=== PATIENT | male | born 1955 | race Caucasian/White ===

== ENCOUNTER 2018-08-11 20:00 | Emergency (ER) | payer SELFPAY ==
[2018-08-11 20:01] VITALS: PULSE 52; RESP 14; TEMP 37; O2SAT 97; BMI 25.8
--- NOTE | 2018-08-11 20:24 | ED.VISSUMM ---
- ER Visit Summary Date of Service: 08/11/18 Chief Complaint: Left hand laceration History of Present Illness: The patient is a 62 M left hand in a saw prior to arrival. No other injury. T, Physical Examination: here is a 12 cm laceration dorsum of the hand. The extensor tendons of the left hand are severed, patient is unable to extend the thumb. There is partial tendon tear of the second digit also. Patient has distal capillary refill. Emergency Department Course and Treatment: Patient received tetanus, Ancef, analgesia. I discussed the patient with Regan durant he will be transferred there for Ortho hand care. He was told he will need surgery. Transfer in guarded condition Impression: Hand laceration 12 cm Extensor tendon laceration This note was generated with [employer] dictation software. It may contain incorrect words, spelling, and punctuation that were not noted in review of the chart prior to signing ED Disposition - Plan for ED Patient: Referrals: Rebekah De Santiago DO [Primary Care Provider] -
--- NOTE | 2018-08-11 20:27 | ED.DCSUM_ITS ---
- ER Visit Summary Date of Service: 08/11/18 Chief Complaint: Left hand laceration History of Present Illness: The patient is a 62 M left hand in a saw prior to arrival. No other injury. T, Physical Examination: here is a 12 cm laceration dorsum of the hand. The extensor tendons of the left hand are severed, patient is unable to extend the thumb. There is partial tendon tear of the second digit also. Patient has distal capillary refill. Emergency Department Course and Treatment: Patient received tetanus, Ancef, analgesia. I discussed the patient with Regan durant he will be transferred there for Ortho hand care. He was told he will need surgery. Transfer in guarded condition Impression: Hand laceration 12 cm Extensor tendon laceration This note was generated with [employer] dictation software. It may contain incorrect words, spelling, and punctuation that were not noted in review of the chart prior to signing ED Disposition - Plan for ED Patient: Referrals: Rebekah De Santiago DO [Primary Care Provider] -
--- NOTE | 2018-08-11 20:30 | RAD_ITS ---
STUDY: X-RAY - LEFT HAND REASON FOR EXAM: Male, 62 years old. Laceration from saw. TECHNIQUE: 3 view(s) of the hand. COMPARISON: None. FINDINGS: Normal radiocarpal articulation. Normal distal radioulnar joint. Normal visualized carpal bones. Normal carpal articulations Normal carpometacarpal articulation of the thumb. Normal second through fifth carpometacarpal joints. Normal metacarpi. Normal metacarpophalangeal joint of the thumb. Normal interphalangeal joint of the thumb. Normal proximal and distal phalanges of the thumb. Normal metacarpophalangeal joints of the second through fifth fingers. Normal proximal and distal interphalangeal joints of the second through fifth fingers. Normal phalanges of the second through fifth fingers. Appears to be soft tissue irregularity over the palm of hand. There is no foreign body. RAD/Hand Min 3 Views IMPRESSION: 1. No evidence of foreign body. 2. No fracture or dislocation. Electronically Signed: Wilbur Couch DO at 20:47 EDT Tel [phone], Service support ,
[2018-08-11] MEDS: Diphth,Pertuss(Acell),Tet Vac 0.5 ML Vial IM (20:42)
[2018-08-11] MEDS: Cefazolin 1 GM/50 ML BAG IV (20:42)
[2018-08-11] MEDS: Morphine 4 MG/ML Syringe IV (20:43)
[2018-08-11] MEDS: Ondansetron 4 MG/2 ML Vial IV (20:43)
[2018-08-11 20:55] VITALS: BP 143/81; PULSE 57; RESP 16; O2SAT 96
== END 2018-08-11 21:34 | disposition short-term general hospital (02) ==
LOC: ED 20:20
PROVIDERS: Emergency Provider Emergency Medicine; Family Provider Internal Medicine; PCP Internal Medicine
DX: S66.329A Laceration of extensor muscle, fascia and tendon of unspecified finger at wrist and hand level, initial encounter (principal); S66.321A Laceration of extensor muscle, fascia and tendon of left index finger at wrist and hand level, initial encounter; S61.412A Laceration without foreign body of left hand, initial encounter; W27.0XXA Contact with workbench tool, initial encounter; Y93.9 Activity, unspecified; Y92.9 Unspecified place or not applicable
CPT/HCPCS: 73130; 90715; 96365; 96375; 99284; J7030; A4216; J2405

== ENCOUNTER 2018-10-22 08:00 | Outpatient (RCR) | payer SELFPAY ==
--- NOTE | 2018-09-30 15:31 | HP.OTEVAL_ITS ---
Patient's Visit Information BACILIO CASLILAS is a 63 year old M, referred to Occupational Therapy by Justin Min, with a diagnosis of left hand truma. Date of Evaluation: 09/24/18 Occupational Therapist: Hollie Mead, HOMERO/Brenda, CHT - Subjective Subjective: This injury on 08/11/18, sx 08/20/18. pt arrives with out-cork wirer extension orthosis states he recived this on 08/21/18. pt was moving thumb following sx and now notices numbness on the tip of his thumb. Pt is ready to start moving his hand to return to his PLOF. pt currently states he has no grasp ability of his left hand. Dr. mireles states pt is S/P EIP to EPL tendon transfer. Pt arrived with operative report. - ADLs Dressing: Button shirt, Pants, Socks, Shoes Fasteners: Tie shoes, Buttons, Zippers, [place], Belt Eating: Use silverware Bathing: Handle washcloth & soap Miscellaneous: Handle money (change), Hold change, Write, Turn pages in book, Function in drive through window - Pain left hand 0 Pain Intensity Range: 0, 3 - ROM Forearm: WNL Wrist: right 50/30 left 30/20 CMC: right 25 left +10 MP: right 55 left 20 IP: right 55 left 15 ROM Comments: left IF MCP 25 PIP 45 DIP 40. left MF MCP 30 PIP 65 DIP 45. left RF MCP 40 PiP 65 DIP 50. left LF MCP 35 PIP 65 DIP 45. pt demo with limited functional grasp - Strength Supreme Court Justice: right 30# left unable Lateral Pinch: right 22# left NT Tripod Pinch: right 12# left NT Strength Comments: will test left aircraft mechanic structures/pinch strength at later date - Edema PIP: right MF 6.8cm left 7.5cm Proximal Phalanx: right 21cm left 22.5cm - Sensation Thumb: right 2.83 left 3.18 Index: right 2.83 left 3.18 Middle: right 2.83 left 2.83 Ring: right 2.83 left 2.83 Little: right 2.83 left 2.83 - Quick DASH-Disab of Arm,Shoulder& Hand Quick DASH Score: 78.3325 - Goals Goal:100% adherence to protocol: Yes Comment: EIP to EPL tendon transfer Goal:Daily scar massage when approriate: Yes Goal:ROM equal to unaffected hand: Yes Goal:Supreme Court Justice/Pinch strength at least 75% of unaffected hand: Yes Goal:No pain with affected hand use: Yes Goal:Full use of affected hand in daily activities including: Yes Goal:Improvement in sensation documented by [place]-Jorge: Yes - Rehabilitation General Assessment: Pt s/p 08/20/18 EIP to EPL tendon transfer, Left IF radial collateral ligament and ulnar collateral ligament metacarpophalangeal joint, Left IF dorsal capsule repair metacarpophalogeal joint, Left radial and ulnar sagittal band repairs, IF metacarppphalangeal joint, removalof foreign body, left IF dorsal aspect. Repair of extensor digitorum communis, left IF, s uperficial radial nerve repair, let hand. Left extensor indicis proprius to extensor pollicis longus transfer, irrigation and debridement of bone, left Metacarpophalangeal joint of thumb., dorsal capsule repair, left thumb metacarpophalangeal joint thumb. Today pt arrives with left out-cork wirer orthosis, edema and min. AROM. pt currently limited with ADLs and IADLs due to healing of tendon tsf, and a number of repairs. pt would benefit from skilled OT services 1-2 x week for 8 weeks. Today pt was ed. on EIP to EPL tendon transfer and protocol, AROM and AAROM ex. pt was given handout and demo understanding of ex and agree to POC. Due to pt paying out of pocket for therapy he will be seen 1- 2x week for 5 weeks. Rehabilitation Potential: Good - Anticipated Interventions Anticipated Interventions: A/AAROM/PROM, Strengthening, Edema Control, Scar Care, Triggerpoint Release, Sensory Retraining, Wound Care, Modalities, Orthoses, Joint Protection/Energy Conservation, Ergonomic Education, Fine Motor Coord/Juve - Visit Plan Frequency: 1-2x /Week Duration: 6 Weeks TEXT: Thank you for the opportunity to evaluate your patient. For Medicare and Medicare HMO plans, please review the plan of care and approve it. It will need to be FAXED BACK to us at [phone] for Medicare purposes. Please let me know if there are questions or concerns regarding this plan of care. Physician Signature: Date:
--- NOTE | 2018-10-15 09:54 | OTREVAL_ITS ---
Justin Min, It has been my pleasure to treat BACILIO CASILLAS over the last 4 visits for left hand truma. Please see the progress note below for an update on the occupational therapy plan of care! Subjective: pt arrives states he is feeling good- using edema glove during the day- Objective/Function: IF MCP 65 PIP 75 DIP 65. MF MCP 75 PIP 95 DIP 70. RF MCP 80 PIP 95 DIP 70. LF MCP 80 PIP 85 DIP 65. left thum MP45 IP 28. opposition to tip of LF-. left eyeglass assembler strength 40# right 60#. pt is making good gains with his ROM and functional use of his left hand. pt is progressing well. therapist will cont. to follow EIP-EPL tendon transfer protocol Plan Frequency: 1-2x /Week Duration: 6 Weeks Plan: cont to follow EIP EPL transfer protocol Anticipated Interventions Anticipated Interventions: A/AAROM/PROM, Strengthening, Edema Control, Scar Care, Triggerpoint Release, Sensory Retraining, Wound Care, Modalities, Orthoses, Joint Protection/Energy Conservation, Ergonomic Education, Fine Motor Coord/Juve Please do not hesitate to contact me at [phone] by phone or if you have questions or concerns regarding this new plan of care! Sincerely, Hollie Mead OTR/L, CHT
--- NOTE | 2018-10-22 08:57 | HP.OTDCSUM ---
HP - OT D/C Summary It has been my pleasure to treat BACILIO CASILLAS under orders from Justin Min, for the diagnosis of left hand truma for a total of 5 visit(s). Please see the following information for a summary of their discharge status. - Overall Improvement % Improvement: 85 - Objective Objective/Function: IF MCP 65 PIP 75 DIP 65. MF MCP 75 PIP 95 DIP 70. RF MCP 80 PIP 95 DIP 70. LF MCP 80 PIP 85 DIP 65. left thum MP45 IP 28. opposition to tip of LF-. left roll operator strength 40# right 60#. pt is making good gains with his ROM and functional use of his left hand. pt is progressing well. has approved D/C from therapy services for pt to cont. with HEP. - Goals Patient Goals: Regain Mobility, Regain Strength, Return to Work, Decrease Swelling/Stiffness Goal:100% adherence to protocol: Yes Goal:Daily scar massage when approriate: Yes Goal:ROM equal to unaffected hand: Yes Goal:Senior Safety Support Manager/Pinch strength at least 75% of unaffected hand: Yes Goal:No pain with affected hand use: Yes Goal:Full use of affected hand in daily activities including: Yes Goal:Improvement in sensation documented by [place]-Jorge: Yes - Plan Plan: D/C - D/C Information Discharge Comments: Pt progressed well following tendon transfer. PT demo with composite fist and full ext of left hand. pt to cont. with HEP. Pt demo understanding of HEP and agree to return to in 8 weeks. Pt to call therapist if he has questions or concerns prior to dr. brown. If there are questions or concerns regarding this patient's occupational therapy, please fell free to call me at [phone]. Thank you for the referral of this patient. Sincerely, Hollie Mead, OTR/L, CHT
== END 2018-10-22 19:00 | disposition home or self-care (01) ==
LOC: OT 08:00
PROVIDERS: Referring Provider Orthopaedic Surgery Hand Surgery; Visit Provider Orthopaedic Surgery Hand Surgery
DX: S66.321D Laceration of extensor muscle, fascia and tendon of left index finger at wrist and hand level, subsequent encounter (principal); S56.32 Laceration of extensor or abductor muscles, fascia and tendons of thumb at forearm level
CPT/HCPCS: 97035; 97110; 97140; 97166; 97530

== ENCOUNTER 2021-06-07 11:33 | Outpatient (CLI) | payer MEDICARE, OTHER, SELFPAY ==
[2021-06-07 12:18] LABS: Erythrocyte Sedimentation Rate 10 mm/hr (0-20)
[2021-06-07 12:30] LABS: Absolute Neutrophil Count 2.6 X10^3/uL (2.0-7.7); Basophil# 0.04 X10^3/uL; Basophil% 0.9 % (0-1); Eosinophil# 0.09 X10^3/uL; Eosinophils% 2.1 % (0-5); Hematocrit 47.2 % (40-54); Hemoglobin 16.4 g/dL (13.0-16.5); Lymphocyte % 23.5 % (19-41); Mean Corp Hgb Conc 34.7 g/dL (32-36); Mean Corpuscular Hgb 31.8 pg (27.0-32.0); Mean Corpuscular Volume 91.7 fL (80-94); Mean Platelet Vol. 9.9 fl (6.2-12.0); Monocyte# 0.48 X10^3/uL; Monocyte% 11.3 % (0-10); NRBC Flagged by Analyzer 0 % (0-5); Neutrophil # 2.63 X10^3/uL (2.7-7.7); Platelet Count 258 K/mm3 (150-450); RBC Distribution Width CV 12.3 % (11.6-14.6); RBC Distribution Width SD 41.3 fl (35.1-43.9); Red Blood Count 5.15 M/mm3 (4.6-6.2); White Blood Count 4.3 K/mm3 (4.4-11.0)
[2021-06-07 13:00] LABS: Vitamin D,25 Hydroxy 31.6 ng/mL
[2021-06-07 13:26] LABS: ALB/GLOB Ratio 1.1 RATIO (0.9-2.4); AST(SGOT) 31 U/L (15-37); Alanine Aminotransfer ALT/SGPT 27 U/L (16-61); Albumin, Serum 4.1 g/dL (3.2-5.0); Alkaline Phosphatase 87 U/L (45-117); Anion Gap 5 (5-15); BUN 16 mg/dL (7-18); BUN/Creat Ratio 15.5 RATIO (10-20); CRP < 2.90 mg/L (0.0-3.0); Calcium,Total 9.2 mg/dL (8.5-10.1); Chloride 105 mmol/L (98-107); Cholesterol 209 mg/dL (200); Creatinine, Serum 1.03 mg/dL (0.70-1.30); EST Glomerular Filtration Rate 77 mL/min (>60); Est Glom Filt Rate - Afr Amer 93 mL/min (>60); Globulin 3.8 g/dL (2.2-4.2); Glucose 98 mg/dL (74-106); High Density Lipoprotein 66 mg/dL; PSA,Total - Annual Screen 1.66 ng/mL (0.00-4.00); Potassium 3.9 mmol/L (3.5-5.1); Protein, Total 7.9 g/dL (6.4-8.2); Sodium Level 139 mmol/L (136-145); Triglycerides 57 mg/dL; Very Low Density Lipoprotein 11 mg/dL (5-40)
[2021-06-07 13:41] LABS: Hemoglobin A1c 5.7 % (3.8-5.6)
== END 2021-06-07 23:59 | disposition home or self-care (01) ==
PROVIDERS: Referring Provider Internal Medicine; Visit Provider Internal Medicine
DX: Z00.00 Encounter for general adult medical examination without abnormal findings (principal); Z12.5 Encounter for screening for malignant neoplasm of prostate; Z13.1 Encounter for screening for diabetes mellitus; Z13.220 Encounter for screening for lipoid disorders; M25.531 Pain in right wrist
CPT/HCPCS: 36415; 80053; 80061; 82306; 83036; 84153; 84443; 85025; 85652; 86140; G0103

== ENCOUNTER 2022-05-31 15:45 | Emergency (ER) | payer MEDICARE, OTHER, SELFPAY ==
[2022-05-31 15:46] VITALS: BP 160/98; PULSE 75; RESP 16; TEMP 36.2; O2SAT 94; BMI 25.1
--- NOTE | 2022-05-31 16:22 | EDS_ITS ---
HPI History of Present Illness Chief Complaint: Chest Pain Informant: patient Onset/Context/Timing Onset: Weeks (1) Activity at onset: sudden Timing: Intermittent Quality: Positive for Burning Location: Right Parasternal and Left Chest Worsened By: Nothing Relieved By: Nothing Associated Symptoms: Positive for Cough and Acid Reflux; Negative for Nausea, Vomiting, Diaphoresis, Dyspnea, Fever, Lightheadedness or Palpitations Narrative Narrative: Patient presents with chest pain that has been intermittent over the last week. Patient states it started in the right parasternal area. Patient states he has had intermittent pain in the left lateral chest and left arm. Patient states the pain comes and goes. Patient states pain last approximately 5 minutes and then resolves on its own. Patient states nothing makes it better nothing makes it worse. Patient describes it as burning. Patient admits to a mild cough but denies any sputum production. Patient does admit to some heartburn symptoms. Patient denies any nausea or vomiting. Patient denies any shortness of breath or diaphoresis. Patient denies any lightheadedness or dizziness. CVD Risk Factors: Negative for Hypertension, Diabetes, Hypercholesterolemia, Family History 1' </=55 or Smoking PE Risk Factors: Negative for Recent Travel/Surgery, Recent Immobilization, Prior DVT or PE, Cancer or OCP + Smoking + >/=35 PFSH PFSH Medical History (Updated 05/31/22 @ 17:[address] Ramon Arvizu DO) Cervical disc disease Home Medications Fiberstone PO 06/07/21 [History Last Taken Unknown] Innergize electrolytr supplement PO 06/07/21 [History Last Taken Unknown] now dietary supplement PO 06/07/21 [History Last Taken Unknown] Allergy/AdvReac Type Severity Reaction Status Date / Time No Known Allergies Allergy Verified 05/31/22 15:48 Family History (Updated 06/07/21 @ 09:38 by Jasmina Epps) Other Cancer Colon cancer Surgical History H/O skin graft H/O wrist surgery Social History Smoking Status: Never smoker alcohol intake: current alcohol intake frequency: a few times a month Alcohol type: beer and wine substance use type: does not use ROS ROS ED Constitutional Constitutional ED: Reports chills and subjective; Denies fever(s) Eyes Eyes: Denies blurry vision or change in vision ENT ENT ED: Denies rhinorrhea or sore throat Cardiovascular Cardiovascular: Reports chest pain; Denies palpitations Respiratory/Chest Respiratory/Chest: Reports cough; Denies dyspnea Gastrointestinal Gastrointestinal: Reports nausea; Denies abdominal pain or vomiting Genitourinary Genitourinary ED: Denies dysuria or hematuria Musculoskeletal Musculoskeletal: Reports neck pain; Denies back pain Integumentary Denies abscess or rash Neurologic Neurologic: Reports headache(s); Denies weakness Allergic/Immunologic Allergic/Immunologic ED: Denies mouth swelling or urticaria EXAM Physical Exam Const Vital Signs: 05/31/22 15:46 05/31/22 16:27 05/31/22 16:32 Temperature 97.2 F L Temperature Source Temporal Pulse Rate 75 Respiratory Rate 16 Respiratory Effort Normal Blood Pressure 160/98 H Blood Pressure Mean 118 Pulse Ox 94 95 Oxygen Delivery Method Room Air Positive well nourished and well developed General Appearance ED: well developed and NAD HEENT normocephalic and atraumatic Eyes PERRL and EOMs intact bilaterally Neck supple and no JVD Chest Wall palpation of chest normal Resp normal respiratory effort and clear to auscultation bilaterally Effort and Inspection: Negative for respiratory distress Cardio regular rate, regular rhythm and no murmurs GI normal to inspection, nondistended, normoactive bowel sounds, soft to palpation, non-tender and non-distended Extremity normal to inspection General Extremety ED: Negative for edema or tenderness General Extremity: Negative for edema Neuro oriented x3, CN's II-XII intact bilaterally and no sensory deficits noted Sensorium / Orientation: awake and alert Motor Exam: strength 5/5 throughout Psych mental status grossly normal Heart Score History: Slightly/Non-Suspicious ECG: Normal Age: >/= 65 years Risk Factors: No Risk Factors Troponin: </= Normal Limit Score: 2 MDM MDM MDM Narrative Medical decision making narrative: Differential diagnosis includes cardiac dysrhythmia, cardiac ischemia, pneumonia, pneumothorax, gastroesophageal reflux disease, and musculoskeletal chest pain. Patient has a Wells score of 0. Patient denies any PE risk factors. Other than his age, patient is PERC negative. Therefore I do not feel that this is from a pulmonary embolism. Lab Data Attestation: I reviewed the patient's lab results. Lab results narrative: CBC was reviewed and was within normal limits. Basic metabolic profile was reviewed and was within normal limits. High-sensitivity troponin was reviewed and was normal at 4. Labs: Laboratory Results - last 24 hr 05/31/22 05/31/22 16:30 16:30 WBC 4.8 RBC 4.76 Hgb 15.0 Hct 43.6 MCV 91.6 MCH 31.5 MCHC 34.4 RDW Std Deviation 40.9 RDW Coeff of Jessie 12.2 Plt Count 225 MPV 9.4 Immature Gran % (Auto) 0.200 Neut % (Auto) 52.9 Lymph % (Auto) 29.2 [place] % (Auto) 13.8 H Eos % (Auto) 3.1 Baso % (Auto) 0.8 Absolute Neuts (auto) 2.5 Absolute Lymphs (auto) 1.40 Nucleated RBC % 0 Sodium 140 Potassium 4.1 Chloride 107 Carbon Dioxide 27.0 Anion Gap 6 BUN 19 H Creatinine 1.11 Estim Creat Clear Calc 63.33 Est GFR (MDRD) Af Amer 85 Est GFR (MDRD) Non-Af 70 BUN/Creatinine Ratio 17.1 Glucose 90 Calcium 9.0 Troponin I High Sens 4 Radiography Chest X-Ray - ED: 1 View, Read by ED Physician, Read by Radiologist and No Acute Disease Diagnostic Testing: Clinical Impression(s) from Imaging Studies Chest X-Ray 05/31/22 16:40 IMPRESSION: Degenerative changes, as described above. No demonstrated acute cardiopulmonary process. Electronically Signed: Wilbur Couch DO at 16:49 EDT Reading Location ID and State: [address] [place] [address] Tel [phone], Service support , Portable 1 view chest x-ray was obtained. On my independent interpretation, lung vora are clear. There is normal cardiac silhouette. Bony thorax is normal. There is no acute process noted. Radiologist also interpreted the x- ray and agrees. EKG Initial EKG: Attestation: I personally reviewed and interpreted this EKG as follows: Interpretation: Sinus Rhythm (68), No Acute Injury Pattern and RBBB (Incomplete) Comments: EKG was obtained. On my independent interpretation, it showed a normal sinus rhythm with a rate of 68. GA interval, QRS interval, and QTc intervals were all normal. [place] was borderline left axis at -25. There are no acute ST or T wave changes. Prior EKG tracings: available for review Prior: Unchanged (03/13/2013) Differential Diagnosis Chest pain/SOB: pulmonary embolism Reason(s) PE less likely: Positive for Well's <3, not tachycardic and not hypoxic, ACS, pneumothorax, pneumonia, aortic dissection Reason(s) Aortic dissection less likely:: Positive for normal vascular exam, no history of HTN, normal neurological exam and no significant risk factors for dissection, CHF Reason(s) CHF less likely: Positive for no significant peripheral edema and no orthopnea and COPD Reason(s) COPD less likely: Positive for no significant wheezing on exam, no tachypnea, no conversational dyspnea and normal air movement noted on auscultation on lungs Treatment and Re-Evaluation :: Patient was given aspirin here. Patient was advised of his findings. Patient has a HEART score of 2. Patient was advised that this is low risk for acute cardiac event. Patient was instructed to follow-up with his primary care physician in 5 to 7 days for further evaluation. Patient understood and was agreeable with the plan. All questions were answered. Discharge Plan Triage Chief Complaint: Chest Pain ED Provider: Ramon Arvizu Dx/Rx/DC Orders Clinical Impression: Chest pain Instructions: ED Chest Pain, Uncertain Cause Prescriptions: No Action now dietary supplement PO Innergize electrolytr supplement PO Fiberstone PO Primary Care Provider: Sakshi Fletcher Referrals: Sakshi Fletcher MD [Primary Care Provider] - 5-7 Days Care Physician,No Primary [Non-Staff] - Disposition Disposition: Home, Self Care
--- NOTE | 2022-05-31 16:30 | EKG12_ITS ---
Test Reason : CP Blood Pressure : / mmHG Vent. Rate : 068 BPM Atrial Rate : 068 BPM P-R Int : 156 ms QRS Dur : 092 ms QT Int : 380 ms P-R-T Axes : 058 -25 066 degrees QTc Int : 404 ms Normal sinus rhythm Incomplete right bundle branch block Borderline ECG Confirmed by SHANNAN ISSA, CHRIS ([id number]), fan mail editor VARSHA PEARSON ([id number]) on 06/01/2022 10:53:08 AM Referred By: ROSETTA Confirmed By:CHRIS CAMPBELL MD
[2022-05-31 16:32] VITALS: O2SAT 95
[2022-05-31] MEDS: Aspirin 81 MG TAB.CHEW 324 MG PO (16:39)
--- NOTE | 2022-05-31 16:40 | RAD_ITS ---
STUDY: X-RAY CHEST REASON FOR EXAM: Male, 66 years old. Chest pain. Cardiac issues. TECHNIQUE: Single AP portable view of the chest. COMPARISON: None. FINDINGS: Mildly limited inspiratory effort. There is no focal mass or infiltrate within the lungs. There is no demonstrated pleural abnormality. Normal size heart. Normal mediastinum and celia. Normal visualized pulmonary arteries. Normal visualized aortic arch and descending thoracic aorta. There are diffuse degenerative changes of the visualized thoracic spine. Normal visualized ribs, clavicles, and shoulders. There is no demonstrated abnormality of the visualized soft tissue structures of the upper abdomen. RAD/Chest 1 View (Portable) IMPRESSION: Degenerative changes, as described above. No demonstrated acute cardiopulmonary process. Electronically Signed: Wilbur Couch DO at 16:49 EDT ,
[2022-05-31 16:44] LABS: Absolute Neutrophil Count 2.5 X10^3/uL (2.0-7.7); Basophil# 0.04 X10^3/uL; Basophil% 0.8 % (0-1); Eosinophil# 0.15 X10^3/uL; Eosinophils% 3.1 % (0-5); Hematocrit 43.6 % (40-54); Lymphocyte % 29.2 % (19-41); Mean Corp Hgb Conc 34.4 g/dL (32-36); Mean Corpuscular Hgb 31.5 pg (27.0-32.0); Mean Corpuscular Volume 91.6 fL (80-94); Mean Platelet Vol. 9.4 fl (6.2-12.0); Monocyte# 0.66 X10^3/uL; Monocyte% 13.8 % (0-10); NRBC Flagged by Analyzer 0 % (0-5); Neutrophil # 2.53 X10^3/uL (2.7-7.7); Neutrophil % 52.9 % (47-70); Platelet Count 225 K/mm3 (150-450); RBC Distribution Width CV 12.2 % (11.6-14.6); RBC Distribution Width SD 40.9 fl (35.1-43.9); Red Blood Count 4.76 M/mm3 (4.6-6.2); White Blood Count 4.8 K/mm3 (4.4-11.0)
[2022-05-31 17:00] LABS: Anion Gap 6 (5-15); BUN 19 mg/dL (7-18); BUN/Creat Ratio 17.1 RATIO (10-20); Chloride 107 mmol/L (98-107); Creatinine, Serum 1.11 mg/dL (0.70-1.30); EST Glomerular Filtration Rate 70 mL/min (>60); Est Glom Filt Rate - Afr Amer 85 mL/min (>60); Estimated Creatinine Clearance 63.33 ml/min; Glucose 90 mg/dL (74-106); Potassium 4.1 mmol/L (3.5-5.1); Sodium Level 140 mmol/L (136-145); Troponin-I HS 4 pg/mL (3.0-78.0)
[2022-05-31 17:44] VITALS: BP 120/79; PULSE 56; RESP 16; O2SAT 97
== END 2022-05-31 17:51 | disposition home or self-care (01) ==
PROVIDERS: Emergency Provider Emergency Medicine; PCP Internal Medicine; Visit Provider Emergency Medicine
DX: R07.9 Chest pain, unspecified (principal)
CPT/HCPCS: 71045; 80048; 84484; 85025; 93005; 96374; 99284

== ENCOUNTER 2024-02-21 04:14 | Emergency (ER) | payer MEDICARE, OTHER, SELFPAY ==
[2024-02-21] VITALS (10 sets, daily range): BP systolic 102–140; BP diastolic 62–88; PULSE 49–68; RESP 9–18; TEMP 36.3–36.8; O2SAT 95–97; BMI 26.4
--- NOTE | 2024-02-21 04:41 | EKG12_ITS ---
Test Reason : CP Blood Pressure : */* mmHG Vent. Rate : 64 BPM Atrial Rate : 64 BPM P-R Int : 170 ms QRS Dur : 78 ms QT Int : 414 ms P-R-T Axes : 53 -24 27 degrees QTcB Int : 427 ms Normal sinus rhythm Normal ECG Confirmed by DEEPAK ISSA, CHRISTINA ([id number]), warehouse distribution associate VARSHA PEARSON ([id number]) on 02/26/2024 1:28:40 P M Referred By: DANIELA Confirmed By: CHRISTINA SOTELO MD
[2024-02-21] MEDS: Aspirin 325 MG Tablet PO (04:45)
[2024-02-21 04:49] LABS: Absolute Lymphocyte Count 1.34 X10^3/uL (0.83-4.51); Basophil# 0.06 X10^3/uL; Basophil% 1.1 % (0-1); Eosinophil# 0.27 X10^3/uL; Eosinophils% 4.9 % (0-5); Hematocrit 44.1 % (40-54); Lymphocyte # 1.34 X10^3/ul (0.83-4.51); Lymphocyte % 24.4 % (19-41); Mean Corpuscular Hgb 30.8 pg (27.0-32.0); Mean Corpuscular Volume 90.6 fL (80-94); Mean Platelet Vol. 9.3 fl (6.2-12.0); Monocyte# 0.84 X10^3/uL; Monocyte% 15.3 % (0-10); NRBC Flagged by Analyzer 0 % (0-5); Neutrophil # 2.95 X10^3/uL (2.7-7.7); Neutrophil % 53.8 % (47-70); Platelet Count 224 K/mm3 (150-450); RBC Distribution Width SD 39.6 fl (35.1-43.9); Red Blood Count 4.87 M/mm3 (4.6-6.2); White Blood Count 5.5 K/mm3 (4.4-11.0)
--- NOTE | 2024-02-21 04:55 | RAD_ITS ---
EXAM: XR CHEST, 2 VIEWS CLINICAL INDICATION: chest pain TECHNIQUE: Frontal and lateral views of the chest. COMPARISON: 05/31/2022. FINDINGS: LUNGS AND PLEURAL SPACES: On lateral view there is increased density over the spine at the level of the superior segments of the lower lobes. Increased left retrocardiac density. Low lung volumes limit the exam. No pneumothorax. No effusion. HEART: Unremarkable. Cardiac silhouette not enlarged. MEDIASTINUM: Central airways and mediastinal contour are unremarkable. BONES/JOINTS: Unremarkable. SOFT TISSUES: Unremarkable. RAD/Chest PA and Lateral IMPRESSION: On lateral view there is increased density over the spine at the level of the superior segments of the lower lobes. Increased left retrocardiac density. Finding may be due to consolidation in the superior segment of the left lower lobe. This may be artifactual related to low lung volumes. Electronically Signed: Kwesi Kelley MD at 6:41 EST ,
[2024-02-21 05:08] LABS: Anion Gap 5 (5-15); BUN 15 mg/dL (7-18); BUN/Creat Ratio 13.6 RATIO (10-20); Calcium,Total 9.3 mg/dL (8.5-10.1); Chloride 105 mmol/L (98-107); EST Glomerular Filtration Rate 71 mL/min (>60); Est Glom Filt Rate - Afr Amer 86 mL/min (>60); Estimated Creatinine Clearance 62.18 ml/min; Glucose 87 mg/dL (74-106); Potassium 3.6 mmol/L (3.5-5.1); Sodium Level 139 mmol/L (136-145); Troponin-I HS 6 pg/mL (3.0-78.0)
[2024-02-21 05:09] LABS: D-Dimer Quantitative (DVT/PE) 0.53 FEU/ug/m (0.27-0.49)
--- NOTE | 2024-02-21 06:30 | EX.ED.DYSGE1 ---
HPI History of Present Illness Chief Complaint: Chest Pain Informant: patient and spouse/S.O. Narrative Narrative: Patient is a 68-year-old male with no significant past medical history. He states he was sleeping and then awoke with a vague discomfort starting along the lower sternum and radiating towards his right chest/shoulder. He states there was no associated nausea vomiting diaphoresis or shortness of breath. He denied any recent fevers chills cough or sick contact. He states that there is been no trauma or excessive activity. He denies any history of DVT/PE and he denies any recent surgery but states he recently drove to and from [place] over the last 2-week. He states he does not have high blood pressure high cholesterol diabetes he states he does not smoke and his mother did not have any type of heart disease until the age of 93. However with concern this could be cardiac in nature he presents for evaluation [facility] Medical History (Updated 02/21/24 @ 07:[address] Figueroa Bearden, ) Cervical disc disease Home Medications ?Medication ?Instructions ?Recorded ?Last Taken ?Type NK 02/21/24 Unknown History Allergy/AdvReac Type Severity Reaction Status Date / Time No Known Allergies Allergy Verified 02/21/24 04:14 Family History Other Cancer Colon cancer Surgical History H/O skin graft H/O wrist surgery Social History Smoking Status: Never smoker alcohol intake: current alcohol intake frequency: a few times a month Alcohol type: beer and wine substance use type: does not use ROS ROS ED Constitutional Constitutional ED: Denies chills or fever(s) Eyes Eyes: Denies blurry vision or change in vision ENT ENT ED: Denies sore throat Cardiovascular Cardiovascular: Reports chest pain; Denies palpitations or racing heartbeat Respiratory/Chest Respiratory/Chest: Denies cough or dyspnea Gastrointestinal Gastrointestinal: Denies abdominal pain, diarrhea, nausea or vomiting Musculoskeletal Musculoskeletal: Denies back pain Integumentary Denies rash Neurologic Neurologic: Denies headache(s) Hematologic/Lymphatic Hematologic/Lymphatic: Denies easy bleeding or easy bruising EXAM Physical Exam Const Vital Signs: 02/21/24 04:14 02/21/24 04:17 02/21/24 04:20 Temperature 97.4 F L Temperature Source Temporal Pulse Rate 68 65 Respiratory Rate 18 16 Respiratory Effort Normal Blood Pressure 140/88 H Blood Pressure Mean 105 Pulse Ox 97 97 Oxygen Delivery Method Room Air 02/21/24 04:30 02/21/24 04:45 02/21/24 04:45 Temperature Temperature Source Pulse Rate 64 60 Respiratory Rate 14 11 L Respiratory Effort Blood Pressure 132/80 H 125/75 H 125/75 H Blood Pressure Mean 96 88 88 Pulse Ox Oxygen Delivery Method 02/21/24 05:00 02/21/24 05:15 02/21/24 05:30 Temperature Temperature Source Pulse Rate 59 L 64 54 L Respiratory Rate 9 L 12 11 L Respiratory Effort Blood Pressure 133/69 H 113/63 114/66 Blood Pressure Mean 86 79 83 Pulse Ox Oxygen Delivery Method 02/21/24 05:45 02/21/24 06:00 Temperature Temperature Source Pulse Rate 49 L Respiratory Rate 12 Respiratory Effort Blood Pressure 106/63 114/62 Blood Pressure Mean 76 79 Pulse Ox Oxygen Delivery Method Positive well nourished and well developed General Appearance ED: well developed; Negative for pallor HEENT HEENT Narrative: Normocephalic atraumatic Eyes PERRL and EOMs intact bilaterally General Eye ED: Negative for scleral icterus Neck supple and no JVD Chest Wall palpation of chest normal Chest Narrative: No bony deformity or crepitance palpated of the chest wall No obvious reproducible pain with palpation No overlying soft tissue changes to suggest trauma or infection Resp normal respiratory effort and clear to auscultation bilaterally Resp Narrative: No nasal flaring retractions tachypnea or accessory muscle use Cardio regular rate and regular rhythm Rate: other Other Details: Heart is regular rate and rhythm without murmurs rubs or gallop Radial and carotid pulses are equal and symmetric GI normal to inspection, nondistended, normoactive bowel sounds, non-tender, non-distended and no masses GI Narrative: No voluntary guarding or rigidity or pulsatile mass. Negative Chandler sign Auscultation: normoactive bowel sounds Palpation: soft Extremity normal to inspection Extremity Narrative: No asymmetric edema no pitting edema negative Homans' sign bilaterally Neuro oriented x3, CN's II-XII intact bilaterally and no sensory deficits noted Sensorium / Orientation: alert Motor Exam: strength 5/5 throughout Psych mental status grossly normal Skin no rashes or lesions noted General Skin Exam: Negative for jaundice or pallor MDM MDM MDM Narrative Medical decision making narrative: Patient presented to the ER slightly hypertensive otherwise with stable vital. He reported a vague chest discomfort beginning along the lower sternum and radiating slightly into the right chest wall. There is no associated nausea vomiting diaphoresis or shortness of breath. He is low risk for heart disease as his risk factors are being a man of the age of 40 and the fact mother had CAD requiring a stent but not until age 93. He is also low risk for DVT/PE as his only risk factor is recent travel to and from [place]. With concern that the patient's chest discomfort is acute coronary syndrome versus cardiac dysrhythmia versus DVT/PE versus dissection versus lung pathology such as pneumothorax or pneumonia I did like to perform basic laboratory studies with D-dimer and chest x-ray. EKG shows sinus rhythm without ischemic changes or dysrhythmia change. Initial troponin is 6 and delta remained flat at a value of 7 indicating no acute coronary syndrome. His D-dimer is 0.53 but when age-adjusted it is normal as his upper limit is 0.68 and this goes against DVT/PE or dissection. Moreover the patient does not report radiation of pain towards the back or abdomen there is no syncope or change in vision or neurologic symptoms. Patient also has had spontaneous resolution of his pain which goes against a PE or dissection. There was concern this could be biliary in nature but he does not have any pain with palpation of the abdomen and his Chandler sign is negative. Chest x-ray did question a artifact versus retrocardiac density. The patient does not cough he does not have fever he is not short of breath he does not have a white count and therefore I do not feel this is a developing pneumonia. As his D-dimer is negative for his age I have low concern that this is a atypical presentation for PE or dissection. The patient and his were made aware of the retrocardiac density versus artifact. We discussed obtaining a CT scan for a better picture but I also informed that I have low concern that this is anything nefarious or true mass based on his physical exam risk factors and workup. At this time they wish to return home as he is pain-free and his workup for acute coronary syndrome is negative. He understands that he should follow-up with his doctor for repeat evaluation and to obtain outpatient chest x-ray to compare to today's to check to see if this density persist or was truly artifact in nature. However at this time as his cardiac workup is negative his vitals are stable and his chest pain has resolved he is otherwise safe for discharge. History & Record Review Discussion w/independent historian: Patient and Significant other Lab Data Attestation: I reviewed the patient's lab results. Labs: Laboratory Results - last 24 hr 02/21/24 02/21/24 04:15 06:16 WBC 5.5 RBC 4.87 Hgb 15.0 Hct 44.1 MCV 90.6 MCH 30.8 MCHC 34.0 RDW Std Deviation 39.6 RDW Coeff of Jessie 12.0 Plt Count 224 MPV 9.3 Immature Gran % (Auto) 0.500 Neut % (Auto) 53.8 Lymph % (Auto) 24.4 [place] % (Auto) 15.3 H Eos % (Auto) 4.9 Baso % (Auto) 1.1 H Absolute Neuts (auto) 3.0 Absolute Lymphs (auto) 1.34 Nucleated RBC % 0 D-Dimer Quant (PE/DVT) 0.53 H* Sodium 139 Potassium 3.6 Chloride 105 Carbon Dioxide 29.0 Anion Gap 5 BUN 15 Creatinine 1.10 Estim Creat Clear Calc 62.18 Est GFR (MDRD) Af Amer 86 Est GFR (MDRD) Non-Af 71 BUN/Creatinine Ratio 13.6 Glucose 87 Calcium 9.3 Troponin I High Sens 6 7 Radiography Diagnostic Testing: Clinical Impression(s) from Imaging Studies Chest X-Ray 02/21/24 04:55 IMPRESSION: On lateral view there is increased density over the spine at the level of the superior segments of the lower lobes. Increased left retrocardiac density. Finding may be due to consolidation in the superior segment of the left lower lobe. This may be artifactual related to low lung volumes. Electronically Signed: Kwesi Kelley MD at 6:41 EST , 2 view chest x-ray as interpreted by the emergency medicine physician reveals no acute infiltrate pneumothorax pleural effusion or widening mediastinum. There is questionable artifact versus density in the retrocardiac space Discharge Plan Triage Chief Complaint: Chest Pain ED Provider: Figueroa Bearden Dx/Rx/DC Orders Clinical Impression: Nonspecific chest pain Instructions: ED Chest Pain, Uncertain Cause Prescriptions: No Action NK Primary Care Provider: Sakshi Fletcher Referrals: Sakshi Fletcher MD [Primary Care Provider] - Activity Restrictions/Additional Instructions: Your workup today showed no signs of acute cardiac damage or abnormal heart rhythm. You were given the radiologist report of your chest x-ray which indicates artifact versus potential retrocardiac density. Follow-up with your family doctor for repeat evaluation and discuss obtaining an outpatient chest x-ray to reassess this abnormality. If you have any further concerns or worsening symptoms please return to the hospital for repeat evaluation Print Language: Omani Disposition Disposition: Home, Self Care Discharge Date/Time: 02/21/24 07:12
[2024-02-21 06:41] LABS: Troponin-I HS 7 pg/mL (3.0-78.0)
== END 2024-02-21 07:12 | disposition home or self-care (01) ==
PROVIDERS: Emergency Provider Emergency Medicine; PCP Internal Medicine; Visit Provider Emergency Medicine
DX: R07.89 Other chest pain (principal)
CPT/HCPCS: 71046; 80048; 84484; 85025; 85379; 93005; 99283; A4216